=== PATIENT | female | born 1960 | race Caucasian/White ===

== ENCOUNTER 2021-06-22 12:00 | Outpatient (CLI) | payer MEDICAID ==
[2021-06-15 12:07] LABS: BASOPHILS # (AUTO) 0.1 X10'3 (0-0.2); BASOPHILS % (AUTO) 0.6 % (0-1); EOSINOPHILS # (AUTO) 0.1 X10'3 (0-0.9); EOSINOPHILS % (AUTO) 1.3 % (0-6); LYMPHOCYTES # (AUTO) 1.6 X10'3 (1.1-4.8); LYMPHOCYTES % (AUTO) 18.5 % (21-51); MEAN CORPUSCULAR HEMOGLOBIN 25.1 PG (27.0-31.0); MEAN CORPUSCULAR HGB CONC 31.1 g/dL (33.0-36.5); MEAN CORPUSCULAR VOLUME 80.8 FL (78-98); MEAN PLATELET VOLUME 8.1 FL (7.4-10.4); MONOCYTES # (AUTO) 0.5 X10'3 (0-0.9); MONOCYTES % (AUTO) 6.4 % (2-12); NEUTROPHILS # (AUTO) 6.2 X10'3 (1.8-7.7); NEUTROPHILS % (AUTO) 73.2 % (42-75); PRE OP HEMOGLOBIN 11.2 g/dL (12.0-16.0); PRE OP PLATELET COUNT 254 X10'3 (140-440); RED BLOOD COUNT 4.46 X10'6 (4.20-5.60); RED CELL DISTRIBUTION WIDTH 16.2 % (11.5-14.5)
[2021-06-15 12:25] LABS: ALBUMIN 3.2 G/DL (3.4-5.0); ALBUMIN/GLOBULIN RATIO 0.8 (1.1-1.5); ALKALINE PHOSPHATASE 76 IU/L (46-116); BLOOD UREA NITROGEN 18 MG/DL (7-18); BUN/CREATININE RATIO 22.8 (6.6-38.0); CALCIUM 8.8 MG/DL (8.5-10.1); CHLORIDE 106 MMOL/L (99-107); CREATININE 0.79 MG/DL (0.40-0.90); PRE OP ALT 18 U/L (30-65); PRE OP ANION GAP 4 (8-16); PRE OP AST 13 U/L (10-37); PRE OP BILIRUB, TOTAL 0.3 MG/DL (0.0-1.0); PRE OP GLUCOSE 135 MG/DL (70-104); PRE OP POTASSIUM 4.5 MMOL/L (3.4-5.1); PRE OP SODIUM 143 MMOL/L (135-145); TOTAL CARBON DIOXIDE 32.8 MMOL/L (24-32); eGFR 74 ML/MIN
[~2021-06-22 12:00] MED LIST: ALB0.5UD IH; ALLO100T PO; ATOR40TA PO; CETI10CA19 PO; FURO40TA4 PO; HYDR-4353 PO; LANTUS SQ; LISI-642 PO; MAGN400T50 PO; METF-1203 PO; METO50TA16 PO; MORP30CA17 PO; OMEP40CA21 PO; POTA-192 PO; PREG50CA64 PO; ROPI3TAB4 PO; SERT-434 PO
== END 2021-06-22 23:59 | disposition home or self-care (01) ==
LOC: LAB 12:00
PROVIDERS: ATTEND Orthopaedic Surgery Hand Surgery
DX: Z01.812 Encounter for preprocedural laboratory examination (principal); I51.7 Cardiomegaly; M25.78 Osteophyte, vertebrae; G56.02 Carpal tunnel syndrome, left upper limb; M65.322 Trigger finger, left index finger; M65.332 Trigger finger, left middle finger; M65.312 Trigger thumb, left thumb; M65.342 Trigger finger, left ring finger; M65.4 Radial styloid tenosynovitis [de Quervain]; M65.9 Synovitis and tenosynovitis, unspecified; Z72.0 Tobacco use; Z20.822 Contact with and (suspected) exposure to COVID-19
CPT/HCPCS: 36415; 71046; 80053; 85025; U0003; U0005

== ENCOUNTER 2021-07-27 12:00 | Outpatient (CLI) | payer MEDICAID ==
[~2021-07-27] VITALS: Ht 165.1 cm; Wt 132.4 kg
[2021-07-27 16:12] LABS: ALBUMIN 3.1 G/DL (3.4-5.0); ALKALINE PHOSPHATASE 71 IU/L (46-116); BLOOD UREA NITROGEN 13 MG/DL (7-18); BUN/CREATININE RATIO 18.3 (6.6-38.0); CALCIUM 8.4 MG/DL (8.5-10.1); CHLORIDE 103 MMOL/L (99-107); CREATININE 0.71 MG/DL (0.40-0.90); PRE OP ALT 19 U/L (30-65); PRE OP ANION GAP 11 (8-16); PRE OP AST 11 U/L (10-37); PRE OP BILIRUB, TOTAL 0.2 MG/DL (0.0-1.0); PRE OP GLUCOSE 191 MG/DL (70-104); PRE OP POTASSIUM 4.1 MMOL/L (3.4-5.1); PRE OP SODIUM 142 MMOL/L (135-145); TOTAL CARBON DIOXIDE 27.7 MMOL/L (24-32); TOTAL PROTEIN 6.3 G/DL (6.4-8.2); eGFR 84 ML/MIN
[2021-08-03] MEDS ORDERED: ringers solution, lacted 1,000 ML IV SCH (05:00)
[2021-08-03] MEDS ORDERED: famotidine 20mg tablet PO ONE (05:30)
[2021-08-03] MEDS ORDERED: DOCUMENT DATE & TIME OF BETA-BLOCKER PO ONE (05:30)
[2021-08-03] MEDS ORDERED: clindamycin-Cleocin 900mg/D5W 50 ML IV ONE (05:30)
[2021-08-03] MEDS ORDERED: albuterol 2.5 MG/3 ML nebule NEB ONE (05:30)
[2021-08-03] MEDS ORDERED: BUPIVAcaine 0.5% inj/PF 30 ML ONE (06:56)
[2021-08-03] MEDS ORDERED: BUPIVAcaine 0.5% inj/PF 30 ml vial IJ ONE (07:11)
== END 2021-07-27 23:59 | disposition home or self-care (01) ==
LOC: PRE-OP 12:00 → EDSTATUS 08-03 08:45
PROVIDERS: ATTEND Orthopaedic Surgery Hand Surgery
DX: Z01.818 Encounter for other preprocedural examination (principal); G56.02 Carpal tunnel syndrome, left upper limb; M65.322 Trigger finger, left index finger; M65.332 Trigger finger, left middle finger; M65.312 Trigger thumb, left thumb; M65.342 Trigger finger, left ring finger; Z20.822 Contact with and (suspected) exposure to COVID-19; Z88.5 Allergy status to narcotic agent; Z88.2 Allergy status to sulfonamides
CPT/HCPCS: 36415; 80053; U0003; U0005; J7120; S0020

== ENCOUNTER 2021-08-12 18:18 | Inpatient (IN) | payer MEDICAID ==
[~2021-08-12] VITALS: Ht 165.1 cm; Wt 136.1 kg
[2021-08-12 18:57] LABS: BASOPHILS % (AUTO) 0.5 % (0-1); EOSINOPHILS # (AUTO) 0.3 X10'3 (0-0.9); EOSINOPHILS % (AUTO) 3.8 % (0-6); LYMPHOCYTES # (AUTO) 1.4 X10'3 (1.1-4.8); LYMPHOCYTES % (AUTO) 16.3 % (21-51); MONOCYTES # (AUTO) 0.5 X10'3 (0-0.9); MONOCYTES % (AUTO) 6.3 % (2-12); NEUTROPHILS # (AUTO) 6.1 X10'3 (1.8-7.7); NEUTROPHILS % (AUTO) 73.1 % (42-75); PLATELET COUNT 229 X10'3 (140-440); RED BLOOD COUNT 4.32 X10'6 (4.20-5.60); RED CELL DISTRIBUTION WIDTH 15.6 % (11.5-14.5); WHITE BLOOD COUNT 8.4 X10'3 (4.5-11.0)
[2021-08-12 19:16] LABS: ALANINE AMINOTRANSFERASE 19 U/L (12-78); ALBUMIN 2.8 G/DL (3.4-5.0); ALBUMIN/GLOBULIN RATIO 0.8 (1.1-1.5); ALKALINE PHOSPHATASE 68 IU/L (46-116); ANION GAP -2 (8-16); ASPARTATE AMINO TRANSFERASE 14 U/L (10-37); BILIRUBIN,TOTAL 0.2 MG/DL (0.1-1.0); BLOOD UREA NITROGEN 15 MG/DL (7-18); BUN/CREATININE RATIO 23.4 (6.6-38.0); CALCIUM 8.4 MG/DL (8.5-10.1); CHLORIDE 107 MMOL/L (99-107); CREATININE 0.64 MG/DL (0.40-0.90); GLUCOSE 122 MG/DL (70-104); POTASSIUM 4.7 MMOL/L (3.5-5.1); SODIUM 140 MMOL/L (135-145); TOTAL CARBON DIOXIDE 34.8 MMOL/L (24-32); TOTAL PROTEIN 6.5 G/DL (6.4-8.2); eGFR > 90 ML/MIN
[2021-08-12 19:25] LABS: HEMATOCRIT 33.4 % (35.0-45.0); HEMOGLOBIN 10.6 g/dl (12.0-16.0); MEAN CORPUSCULAR HEMOGLOBIN 24.4 PG (27.0-31.0); MEAN CORPUSCULAR HGB CONC 31.8 g/dL (33.0-36.5); MEAN CORPUSCULAR VOLUME 76.9 FL (78-98)
[2021-08-12 19:30] LABS: PLATELET ESTIMATE NORMAL
[2021-08-12 19:31] LABS: ELLIPTOCYTES 1+; MICROCYTOSIS 1+
[2021-08-12 19:32] LABS: HYPOCHROMASIA 1+
[2021-08-12] MEDS ORDERED: aspirin 325mg tablet PO ONE (20:10)
[2021-08-12] MEDS ORDERED: ondansetron/PF 4mg/2ml inj IV PRN (20:30)
[2021-08-12] MEDS ORDERED: magnesium 2GM in 50ml NS 50 ML IV PRN (20:30)
[2021-08-12] MEDS ORDERED: potassium Cl 20 mEq SR tablet PO PRN ×2 (20:30)
[2021-08-12] MEDS ORDERED: acetaminophen 325mg tablet PO PRN (20:30)
[2021-08-12] MEDS ORDERED: magnesium hydroxide 30ml (MOM) UD suspension PO PRN (20:30)
[2021-08-12] MEDS ORDERED: magnesium 4gm in 100ml NS 100 ML IV PRN (20:30)
[2021-08-12] MEDS ORDERED: potassium CL 10mEq/100ml bag 100 ML IV PRN (20:30)
[2021-08-12] MEDS ORDERED: mag hydrox/Alum hydrox/simeth 30ml oral suspension PO PRN (20:30)
[2021-08-12] MEDS ORDERED: magnesium Cl slow-release 64mg tablet PO PRN (20:30)
--- NOTE | 2021-08-12 20:33 | NUR ---
Patient stated that she takes Xarelto 20mg once at night. Consulted with Fredis DAVIS and he gave verbal orders to order the Xarelto and give food with dose.
[2021-08-12] MEDS ORDERED: rivaroxaban 20mg tablet PO SCH (20:35)
[2021-08-12] MEDS ORDERED: rivaroxaban 20mg tablet PO ONE (20:35)
[2021-08-12] MEDS ORDERED: dextrose 50%-water 50ml dispensing syringe IV PRN ×2 (20:45)
[2021-08-12] MEDS ORDERED: glucagon, human recombinant 1mg kit SUBCUT PRN (20:45)
[2021-08-12] MEDS ORDERED: DEXTROSE 15 GM of carb/4 tabs (each vial/BOTTLE has 4 tablets) PO PRN ×2 (20:45)
[2021-08-12] MEDS ORDERED: MESSAGE TO PHARMACY PO ONE (20:45)
[2021-08-12] MEDS: insulin glargine (Lantus) pen - multi-dose SQ SCH (21:00)
[2021-08-12] MEDS ORDERED: SOTA80TA46 PO (21:13)
[2021-08-12] MEDS ORDERED: RIVA20TA PO (21:13)
[2021-08-12 22:19] LABS: HEMOGLOBIN A1C 6.9 % (4.5-6.2)
[2021-08-12 22:21] LABS: CLARITY,URINE CLEAR (Clear); COLOR,URINE YELLOW (Yellow); GLUCOSE, URINE NEGATIVE (Neg); KETONES,URINE NEGATIVE (Neg); LEUKOCYTE ESTERASE ,URINE NEGATIVE (Neg); NITRITES, URINE NEGATIVE (Neg); OCCULT BLOOD,URINE NEGATIVE (Neg); PROTEIN,URINE NEGATIVE (Neg); UROBILINOGEN,URINE 0.2 E.U/dL (0.2-1.0)
[2021-08-12 22:23] LABS: MAGNESIUM 2.1 MG/DL (1.5-2.4); POTASSIUM 4.8 MMOL/L (3.5-5.1)
[2021-08-12] MEDS ORDERED: albuterol 2.5 MG/3 ML nebule NEB PRN (22:35)
[2021-08-12] MEDS: morphine 2 MG/ML inj. syringe IV PRN (22:36)
[2021-08-12] MEDS: levoFLOXACIN-Levaquin 500mg/D5 100 ML IV SCH (22:39)
[2021-08-12] MEDS ORDERED: METO-395 PO (22:40)
[2021-08-12 22:41] LABS: UA COLLECTION TYPE CLN CATCH MIDSTREAM
[2021-08-12] MEDS ORDERED: FEXO-270 PO (22:41)
[2021-08-12 23:00] VITALS: BP 104/36
[2021-08-12 23:57] VITALS: BP 130/41
--- NOTE | 2021-08-13 00:07 | NUR ---
Pt King Cassidy simeon admit on PCU bed 3013 B, troponin level is 513 . Previous was 504. Md notified of level. Md will consult cardiology for AM cardiac cath.
[2021-08-13 02:00] VITALS: BP 102/43
[2021-08-13] MEDS: HYDROcodone/acetaminophen 10/325mg tab PO PRN ×3 (02:08→16:08)
[2021-08-13] MEDS ORDERED: ROPINIRole 1mg tablet PO ONE (02:30)
[2021-08-13 06:00] VITALS: BP 106/47
[2021-08-13 07:44] LABS: ALANINE AMINOTRANSFERASE 18 U/L (12-78); ALBUMIN 2.8 G/DL (3.4-5.0); ALBUMIN/GLOBULIN RATIO 0.7 (1.1-1.5); ALKALINE PHOSPHATASE 67 IU/L (46-116); ANION GAP 2 (8-16); ASPARTATE AMINO TRANSFERASE 15 U/L (10-37); BILIRUBIN,TOTAL 0.3 MG/DL (0.1-1.0); BLOOD UREA NITROGEN 16 MG/DL (7-18); BUN/CREATININE RATIO 25.4 (6.6-38.0); CALCIUM 8.4 MG/DL (8.5-10.1); CHLORIDE 106 MMOL/L (99-107); CREATININE 0.63 MG/DL (0.40-0.90); GLUCOSE 98 MG/DL (70-104); POTASSIUM 4.9 MMOL/L (3.5-5.1); SODIUM 140 MMOL/L (135-145); TOTAL CARBON DIOXIDE 31.7 MMOL/L (24-32); TOTAL PROTEIN 6.9 G/DL (6.4-8.2); eGFR > 90 ML/MIN
[2021-08-13] MEDS: pantoprazole 40mg Tablet.DR PO SCH (07:46)
[2021-08-13 07:48] LABS: CHOL/HDL RATIO 2.6 (0.00-4.99); CHOLESTEROL 110 MG/DL (0-200); HDL CHOLESTEROL 43 MG/DL (35-60); LDL CHOLESTEROL 55 MG/DL (50-100); TRIGLYCERIDES 78 MG/DL (20-135)
[2021-08-13 07:49] LABS: BASOPHILS % (AUTO) 0.5 % (0-1); EOSINOPHILS # (AUTO) 0.4 X10'3 (0-0.9); EOSINOPHILS % (AUTO) 5.5 % (0-6); HEMATOCRIT 31.2 % (35.0-45.0); HEMOGLOBIN 9.7 g/dl (12.0-16.0); LYMPHOCYTES # (AUTO) 1.8 X10'3 (1.1-4.8); LYMPHOCYTES % (AUTO) 21.5 % (21-51); MEAN CORPUSCULAR HEMOGLOBIN 24.3 PG (27.0-31.0); MEAN CORPUSCULAR HGB CONC 30.9 g/dL (33.0-36.5); MEAN CORPUSCULAR VOLUME 78.6 FL (78-98); MEAN PLATELET VOLUME 8.4 FL (7.4-10.4); MONOCYTES # (AUTO) 0.5 X10'3 (0-0.9); MONOCYTES % (AUTO) 6.7 % (2-12); NEUTROPHILS # (AUTO) 5.4 X10'3 (1.8-7.7); NEUTROPHILS % (AUTO) 65.8 % (42-75); PLATELET COUNT 201 X10'3 (140-440); RED BLOOD COUNT 3.97 X10'6 (4.20-5.60); RED CELL DISTRIBUTION WIDTH 15.9 % (11.5-14.5); WHITE BLOOD COUNT 8.1 X10'3 (4.5-11.0)
--- NOTE | 2021-08-13 07:57 | NUR ---
CRITICAL LAB VALUE TAKEN FROM LAB, REPORTED TO PRIMARY RN.
[2021-08-13] MEDS: K and/or MAG REPLACEMENT MC SCH ×2 (08:00→20:00)
[2021-08-13] MEDS ORDERED: metFORMIN 500mg tablet PO SCH (08:00)
[2021-08-13] MEDS ORDERED: methylPREDNISolone sod succ 125mg/2ml vial IV SCH (08:00)
[2021-08-13] MEDS ORDERED: insulin glargine (Lantus) pen - multi-dose SQ SCH ×2 (08:00)
--- NOTE | 2021-08-13 08:00 | NUR ---
solomon James has been assessed as indicated. She has been noted to be both pleasant and cooperative. Denies pain and is ambulating without assistance. access to Right wrist for cardiac cath has no hematoma. She presently has no s/s of distress or discomfort Addendum: 08/13/21 at 1211 by Mare Hernandez RN ABOVE NOTE INCORRECT PATIENT
[2021-08-13] MEDS ORDERED: PERFLUTREN PROTEIN-A MICROSPHR (Optison) 0.22 MG/ML 3ML VIAL IV ONE (08:15)
[2021-08-13] MEDS ORDERED: regadenoson 0.4mg/5ml syringe IV PRN (08:20)
[2021-08-13] MEDS ORDERED: metoprolol tartrate 1mg/ml inj IV PRN (08:20)
[2021-08-13] MEDS ORDERED: nitroGLYCERIN 0.4mg SUBLingual tab SL PRN (08:20)
[2021-08-13] MEDS ORDERED: aminophylline 500mg/20ml vial IV PRN (08:20)
[2021-08-13] MEDS: furosemide 40mg/4ml inj IV SCH (09:03)
[2021-08-13] MEDS: magnesium oxide 400mg tablet PO SCH (09:04)
[2021-08-13] MEDS: levoFLOXACIN-Levaquin 500mg/D5 100 ML IV SCH (09:04)
[2021-08-13] MEDS: atorvastatin 20mg tablet PO SCH (09:04)
[2021-08-13] MEDS: lisinopril 5mg tablet PO SCH (09:05)
[2021-08-13] MEDS: allopurinol 100mg tablet PO SCH (09:05)
[2021-08-13] MEDS: sotalol 80mg tablet PO SCH ×2 (09:05→20:07)
[2021-08-13] MEDS: loratadine 10mg tablet PO SCH (09:05)
[2021-08-13] MEDS: potassium chloride 8mEq ER tablet PO SCH ×2 (09:06→20:08)
[2021-08-13] MEDS: docusate sod 100mg capsule PO SCH ×2 (09:07→20:07)
[2021-08-13] MEDS: pregabalin 25mg capsule PO SCH ×3 (09:07→20:15)
[2021-08-13] MEDS: metoprolol succinate 25mg (24-HOUR) SR. Tablet PO SCH (09:07)
[2021-08-13] MEDS: sertraline 50mg tablet PO SCH (09:07)
[2021-08-13] MEDS: morphine ER 15mg tablet PO SCH ×3 (09:08→20:14)
[2021-08-13 11:00] VITALS: BP 119/58
[2021-08-13] MEDS: morphine 2 MG/ML inj. syringe IV PRN ×2 (11:41→20:23)
[2021-08-13] MEDS ORDERED: ondansetron 4mg rapidly disintigrating tab PO PRN (14:10)
[2021-08-13 15:00] VITALS: BP 94/42
--- NOTE | 2021-08-13 17:45 | NUR ---
Miss james has been assessed as indicated. She has been noted to be both pleasant and cooperative. she has been successfully treated for pain 3x this shift. She was scheduled to have a Stress test today. However, she states that she had a stress test recently at [facility]. [facility] was contacted. medical records analyst states that she had a stress test in Jun 2021November of 2020 and Jun. he request was not successfully faxed initially. With great effort the faxed request has been successful. Miss James is presently resting quietly
[2021-08-13 18:00] VITALS: BP 93/41
--- NOTE | 2021-08-13 18:25 | NUR ---
Problems reprioritized. Patient report given, questions answered & plan of care reviewed with DONNELL Evans
[2021-08-13] MEDS: methylPREDNISolone sod succ 125mg/2ml vial IV SCH (20:07)
[2021-08-13] MEDS: rivaroxaban 20mg tablet PO SCH (20:14)
[2021-08-13] MEDS: ROPINIRole 1mg tablet PO SCH (20:14)
[2021-08-13] MEDS: insulin glargine (Lantus) pen - multi-dose SQ SCH (20:24)
[2021-08-14] VITALS (7 sets, daily range): BP systolic 96–123; BP diastolic 40–57
[2021-08-14] MEDS: HYDROcodone/acetaminophen 10/325mg tab PO PRN ×3 (05:36→19:41)
[2021-08-14 06:44] LABS: BASOPHILS % (AUTO) 0.1 % (0-1); EOSINOPHILS % (AUTO) 0.2 % (0-6); HEMATOCRIT 31.9 % (35.0-45.0); HEMOGLOBIN 9.7 g/dl (12.0-16.0); LYMPHOCYTES # (AUTO) 1.1 X10'3 (1.1-4.8); LYMPHOCYTES % (AUTO) 13.3 % (21-51); MEAN CORPUSCULAR HEMOGLOBIN 23.9 PG (27.0-31.0); MEAN CORPUSCULAR HGB CONC 30.5 g/dL (33.0-36.5); MEAN CORPUSCULAR VOLUME 78.3 FL (78-98); MEAN PLATELET VOLUME 8.4 FL (7.4-10.4); MONOCYTES # (AUTO) 0.1 X10'3 (0-0.9); MONOCYTES % (AUTO) 1.2 % (2-12); NEUTROPHILS # (AUTO) 6.7 X10'3 (1.8-7.7); NEUTROPHILS % (AUTO) 85.2 % (42-75); PLATELET COUNT 211 X10'3 (140-440); RED BLOOD COUNT 4.07 X10'6 (4.20-5.60); RED CELL DISTRIBUTION WIDTH 15.4 % (11.5-14.5); WHITE BLOOD COUNT 7.9 X10'3 (4.5-11.0)
[2021-08-14 07:10] LABS: ALANINE AMINOTRANSFERASE 17 U/L (12-78); ALBUMIN 2.7 G/DL (3.4-5.0); ALBUMIN/GLOBULIN RATIO 0.7 (1.1-1.5); ALKALINE PHOSPHATASE 67 IU/L (46-116); ANION GAP 6 (8-16); ASPARTATE AMINO TRANSFERASE 14 U/L (10-37); BILIRUBIN,TOTAL 0.3 MG/DL (0.1-1.0); BLOOD UREA NITROGEN 16 MG/DL (7-18); BUN/CREATININE RATIO 24.2 (6.6-38.0); CALCIUM 8.6 MG/DL (8.5-10.1); CHLORIDE 103 MMOL/L (99-107); CREATININE 0.66 MG/DL (0.40-0.90); GLUCOSE 192 MG/DL (70-104); MAGNESIUM 1.8 MG/DL (1.5-2.4); POTASSIUM 4.6 MMOL/L (3.5-5.1); SODIUM 141 MMOL/L (135-145); TOTAL CARBON DIOXIDE 32.1 MMOL/L (24-32); TOTAL PROTEIN 6.8 G/DL (6.4-8.2); eGFR > 90 ML/MIN
[2021-08-14] MEDS: ipratropium/albuterol 3ml nebule NEB PRN (07:54)
[2021-08-14] MEDS: metoprolol succinate 25mg (24-HOUR) SR. Tablet PO SCH ×2 (08:00→08:23)
[2021-08-14] MEDS: lisinopril 5mg tablet PO SCH ×2 (08:00→08:23)
[2021-08-14] MEDS: K and/or MAG REPLACEMENT MC SCH ×2 (08:00→20:00)
[2021-08-14] MEDS: nicotine 21mg patch - 24 hr TD SCH (08:00)
[2021-08-14] MEDS: sotalol 80mg tablet PO SCH ×3 (08:00→20:11)
[2021-08-14] MEDS: furosemide 40mg/4ml inj IV SCH ×2 (08:22→20:09)
[2021-08-14] MEDS: methylPREDNISolone sod succ 125mg/2ml vial IV SCH ×2 (08:22→20:10)
[2021-08-14] MEDS: pregabalin 25mg capsule PO SCH ×3 (08:23→20:12)
[2021-08-14] MEDS: sertraline 50mg tablet PO SCH (08:23)
[2021-08-14] MEDS: atorvastatin 20mg tablet PO SCH (08:23)
[2021-08-14] MEDS: potassium chloride 8mEq ER tablet PO SCH ×2 (08:23→20:10)
[2021-08-14] MEDS: morphine ER 15mg tablet PO SCH ×3 (08:25→20:11)
[2021-08-14] MEDS: docusate sod 100mg capsule PO SCH ×2 (08:25→20:10)
[2021-08-14] MEDS: allopurinol 100mg tablet PO SCH (08:25)
[2021-08-14] MEDS: levoFLOXACIN-Levaquin 500mg/D5 100 ML IV SCH (08:25)
[2021-08-14] MEDS: loratadine 10mg tablet PO SCH (08:25)
[2021-08-14] MEDS: magnesium oxide 400mg tablet PO SCH (08:25)
[2021-08-14] MEDS: pantoprazole 40mg Tablet.DR PO SCH (08:25)
[2021-08-14] MEDS ORDERED: tizanidine 4mg tablet PO ONE (11:15)
[2021-08-14] MEDS: insulin Lispro (HumaLOG) vial - multi-dose SQ SCH ×2 (13:40→19:55)
[2021-08-14] MEDS: morphine 2 MG/ML inj. syringe IV PRN (16:35)
[2021-08-14] MEDS: LIDOcaine 5% patch TP SCH (17:21)
--- NOTE | 2021-08-14 17:45 | NUR ---
Miss James has been assessed as indicated. She states that she has not had a BM today. She did have a BM yesterday. She states that the newly ordered muscle relaxer has eased the pain in her shoulders a great deal. She has requested and received bilat thigh lidocaine patches. she has received IV Morphine x1 today and PO [place] x2 today. She ambulates to the restroom with no assistance and is presently resting quietly
--- NOTE | 2021-08-14 18:24 | NUR ---
Patient in room PCU 3013. I have received report from ROXANNE Tobar and had the opportunity to ask questions and assume patient care.
--- NOTE | 2021-08-14 18:33 | NUR ---
Problems reprioritized. Patient report given, questions answered & plan of care reviewed with ELOINA Perry
[2021-08-14] MEDS: tizanidine 4mg tablet PO PRN (19:42)
[2021-08-14] MEDS: ROPINIRole 1mg tablet PO SCH (20:10)
[2021-08-14] MEDS: rivaroxaban 20mg tablet PO SCH (20:12)
[2021-08-14] MEDS: insulin glargine (Lantus) pen - multi-dose SQ SCH (22:02)
[2021-08-15] VITALS (7 sets, daily range): BP systolic 106–140; BP diastolic 39–75
[2021-08-15] MEDS: HYDROcodone/acetaminophen 10/325mg tab PO PRN ×2 (02:00→16:42)
--- NOTE | 2021-08-15 06:24 | NUR ---
Problems reprioritized. Patient report given, questions answered & plan of care reviewed with ROXANNE Tobar.
[2021-08-15 06:46] LABS: BASOPHILS % (AUTO) 0.1 % (0-1); EOSINOPHILS % (AUTO) 0 % (0-6); HEMATOCRIT 33.3 % (35.0-45.0); HEMOGLOBIN 10.2 g/dl (12.0-16.0); LYMPHOCYTES % (AUTO) 10.5 % (21-51); MEAN CORPUSCULAR HEMOGLOBIN 23.8 PG (27.0-31.0); MEAN CORPUSCULAR HGB CONC 30.6 g/dL (33.0-36.5); MEAN CORPUSCULAR VOLUME 77.9 FL (78-98); MEAN PLATELET VOLUME 8.1 FL (7.4-10.4); MONOCYTES # (AUTO) 0.2 X10'3 (0-0.9); MONOCYTES % (AUTO) 2.1 % (2-12); NEUTROPHILS # (AUTO) 8.4 X10'3 (1.8-7.7); NEUTROPHILS % (AUTO) 87.3 % (42-75); PLATELET COUNT 246 X10'3 (140-440); RED BLOOD COUNT 4.27 X10'6 (4.20-5.60); RED CELL DISTRIBUTION WIDTH 15.4 % (11.5-14.5); WHITE BLOOD COUNT 9.6 X10'3 (4.5-11.0)
[2021-08-15 07:09] LABS: ALANINE AMINOTRANSFERASE 15 U/L (12-78); ALBUMIN/GLOBULIN RATIO 0.8 (1.1-1.5); ALKALINE PHOSPHATASE 68 IU/L (46-116); ANION GAP 4 (8-16); ASPARTATE AMINO TRANSFERASE 9 U/L (10-37); BILIRUBIN,TOTAL 0.3 MG/DL (0.1-1.0); BLOOD UREA NITROGEN 22 MG/DL (7-18); BUN/CREATININE RATIO 27.8 (6.6-38.0); CALCIUM 8.6 MG/DL (8.5-10.1); CHLORIDE 100 MMOL/L (99-107); CREATININE 0.79 MG/DL (0.40-0.90); GLUCOSE 255 MG/DL (70-104); MAGNESIUM 2.1 MG/DL (1.5-2.4); POTASSIUM 4.7 MMOL/L (3.5-5.1); SODIUM 140 MMOL/L (135-145); TOTAL CARBON DIOXIDE 35.7 MMOL/L (24-32); TOTAL PROTEIN 6.8 G/DL (6.4-8.2); eGFR 74 ML/MIN
[2021-08-15] MEDS: ipratropium/albuterol 3ml nebule NEB PRN (07:10)
[2021-08-15] MEDS: K and/or MAG REPLACEMENT MC SCH ×2 (07:39→20:00)
[2021-08-15] MEDS: atorvastatin 20mg tablet PO SCH (08:00)
[2021-08-15] MEDS: metoprolol succinate 25mg (24-HOUR) SR. Tablet PO SCH (08:00)
[2021-08-15] MEDS: sotalol 80mg tablet PO SCH ×2 (08:00→20:08)
[2021-08-15] MEDS: LIDOcaine 5% patch TP SCH (08:00)
[2021-08-15] MEDS: lisinopril 5mg tablet PO SCH (08:00)
[2021-08-15] MEDS: nicotine 21mg patch - 24 hr TD SCH (08:00)
[2021-08-15] MEDS: loratadine 10mg tablet PO SCH (08:01)
[2021-08-15] MEDS: pregabalin 25mg capsule PO SCH ×3 (08:01→20:10)
[2021-08-15] MEDS: allopurinol 100mg tablet PO SCH (08:01)
[2021-08-15] MEDS: pantoprazole 40mg Tablet.DR PO SCH (08:01)
[2021-08-15] MEDS: potassium chloride 8mEq ER tablet PO SCH ×2 (08:02→20:12)
[2021-08-15] MEDS: magnesium oxide 400mg tablet PO SCH (08:02)
[2021-08-15] MEDS: docusate sod 100mg capsule PO SCH ×2 (08:02→20:12)
[2021-08-15] MEDS: sertraline 50mg tablet PO SCH (08:02)
[2021-08-15] MEDS: morphine ER 15mg tablet PO SCH ×3 (08:02→20:11)
[2021-08-15] MEDS: furosemide 40mg/4ml inj IV SCH ×2 (08:06→20:08)
[2021-08-15] MEDS: methylPREDNISolone sod succ 125mg/2ml vial IV SCH ×2 (08:07→20:11)
[2021-08-15] MEDS: levoFLOXACIN 500mg tablet PO SCH (12:05)
--- NOTE | 2021-08-15 12:06 | NUR ---
Resource Nurse Medications given for primary RN Ekaterina while on lunch break; Per RN okay to give all medications that were given; Veena Kyleigh
[2021-08-15] MEDS: insulin Lispro (HumaLOG) vial - multi-dose SQ SCH ×2 (14:42→18:58)
[2021-08-15] MEDS: tizanidine 4mg tablet PO PRN ×2 (14:53→20:11)
--- NOTE | 2021-08-15 17:46 | NUR ---
Miss mcfarlane has been assessed as indicated. She has been noted to be bothh pleasant and cooperative. She had a c/o a "knot" to her lower left extremity. This was palpated by this literary writer. Later when MD was examining the area, the raised section was no longer palpable. She states that the area is still sore. No further interventions at this time. She has been successfully treated for pain several times and taken a muscle relaxer 1x this shift. She is presently resting quietly with no s/s of distress or discomfort
--- NOTE | 2021-08-15 18:14 | NUR ---
Problems reprioritized. Patient report given, questions answered & plan of care reviewed with ELOINA.
--- NOTE | 2021-08-15 18:31 | NUR ---
Patient in room PCU 3013. I have received report from ROXANNE Tobar and had the opportunity to ask questions and assume patient care.
[2021-08-15] MEDS: ROPINIRole 1mg tablet PO SCH (20:08)
[2021-08-15] MEDS: rivaroxaban 20mg tablet PO SCH (20:12)
[2021-08-15] MEDS: insulin glargine (Lantus) pen - multi-dose SQ SCH (21:56)
[2021-08-16 02:00] VITALS: BP 106/40
[2021-08-16 06:00] VITALS: BP 128/74
[2021-08-16 06:35] LABS: BASOPHILS % (AUTO) 0 % (0-1); EOSINOPHILS % (AUTO) 0 % (0-6); HEMATOCRIT 32.7 % (35.0-45.0); HEMOGLOBIN 10.1 g/dl (12.0-16.0); LYMPHOCYTES # (AUTO) 1.1 X10'3 (1.1-4.8); LYMPHOCYTES % (AUTO) 11.8 % (21-51); MEAN CORPUSCULAR HGB CONC 30.9 g/dL (33.0-36.5); MEAN CORPUSCULAR VOLUME 77.7 FL (78-98); MEAN PLATELET VOLUME 8.2 FL (7.4-10.4); MONOCYTES # (AUTO) 0.2 X10'3 (0-0.9); NEUTROPHILS # (AUTO) 8.2 X10'3 (1.8-7.7); NEUTROPHILS % (AUTO) 86.2 % (42-75); PLATELET COUNT 239 X10'3 (140-440); RED BLOOD COUNT 4.21 X10'6 (4.20-5.60); RED CELL DISTRIBUTION WIDTH 15.5 % (11.5-14.5); WHITE BLOOD COUNT 9.5 X10'3 (4.5-11.0)
--- NOTE | 2021-08-16 06:42 | NUR ---
Problems reprioritized. Patient report given, questions answered & plan of care reviewed with ROXANNE Tobar.
[2021-08-16 07:12] LABS: ALANINE AMINOTRANSFERASE 17 U/L (12-78); ALBUMIN 2.8 G/DL (3.4-5.0); ALBUMIN/GLOBULIN RATIO 0.8 (1.1-1.5); ALKALINE PHOSPHATASE 61 IU/L (46-116); ANION GAP 4 (8-16); ASPARTATE AMINO TRANSFERASE 11 U/L (10-37); BILIRUBIN,TOTAL 0.3 MG/DL (0.1-1.0); BLOOD UREA NITROGEN 28 MG/DL (7-18); BUN/CREATININE RATIO 31.8 (6.6-38.0); CALCIUM 8.6 MG/DL (8.5-10.1); CHLORIDE 101 MMOL/L (99-107); CREATININE 0.88 MG/DL (0.40-0.90); GLUCOSE 221 MG/DL (70-104); MAGNESIUM 2.1 MG/DL (1.5-2.4); POTASSIUM 4.6 MMOL/L (3.5-5.1); SODIUM 143 MMOL/L (135-145); TOTAL CARBON DIOXIDE 38.3 MMOL/L (24-32); TOTAL PROTEIN 6.3 G/DL (6.4-8.2); eGFR 66 ML/MIN
[2021-08-16] MEDS: morphine ER 15mg tablet PO SCH ×2 (08:00→12:04)
[2021-08-16] MEDS: pregabalin 25mg capsule PO SCH ×2 (08:00→12:04)
[2021-08-16] MEDS: K and/or MAG REPLACEMENT MC SCH (08:00)
[2021-08-16] MEDS ORDERED: lisinopril 2.5mg tablet PO SCH (08:00)
--- NOTE | 2021-08-16 08:00 | NUR ---
Resource RN Meds given for primary RN Ekaterina while on breakfast break. [facility]
[2021-08-16] MEDS: nicotine 21mg patch - 24 hr TD SCH (08:02)
[2021-08-16] MEDS: atorvastatin 20mg tablet PO SCH (08:02)
[2021-08-16] MEDS: loratadine 10mg tablet PO SCH (08:02)
[2021-08-16] MEDS: pantoprazole 40mg Tablet.DR PO SCH (08:02)
[2021-08-16] MEDS: furosemide 40mg/4ml inj IV SCH (08:03)
[2021-08-16] MEDS: magnesium oxide 400mg tablet PO SCH (08:03)
[2021-08-16] MEDS: allopurinol 100mg tablet PO SCH (08:03)
[2021-08-16] MEDS: potassium chloride 8mEq ER tablet PO SCH (08:03)
[2021-08-16] MEDS: sertraline 50mg tablet PO SCH (08:03)
[2021-08-16] MEDS: methylPREDNISolone sod succ 125mg/2ml vial IV SCH (08:04)
[2021-08-16] MEDS: LIDOcaine 5% patch TP SCH (08:04)
[2021-08-16] MEDS: sotalol 80mg tablet PO SCH (08:05)
[2021-08-16] MEDS: docusate sod 100mg capsule PO SCH (08:15)
[2021-08-16] MEDS ORDERED: LISI2.5T14 PO (10:15)
[2021-08-16] MEDS ORDERED: NICO-687 TD (10:15)
[2021-08-16] MEDS ORDERED: FURO40TA4 PO (10:15)
[2021-08-16] MEDS ORDERED: PRED20TA PO (10:15)
[2021-08-16] MEDS ORDERED: TIZA-205 PO (10:15)
--- NOTE | 2021-08-16 10:27 | NUR ---
Initial: Pt admit dx COPD exacerbation, acute respiratory failure, acute exacerbation of chronic systolic heart failure, and demand ischemia per EMR. Pt is currently on 2L HFNC per EMR. Pt is on carb control/1.5L fluid restriction diet and eating well w/ 100% avg PO intake meals meeting estimated nutrient needs. Recommend double protein with meals for satiety. LBM 08/13, receiving routine colace per EMR. No nutrition intervention implemented at this time. Will continue to follow. Recommendations: 1. Continue carb control/1.5L fluid restriction diet per MD 2. Recommend double protein TIDWM for satiety 3. Routine bowel care 4. Weekly scaled wts Addendum: 08/16/21 at 1028 by Maria A Vidal Intern RD Amended: Links added. Addendum: 08/16/21 at [address] I have reviewed assessment by technical internship
[2021-08-16 11:00] VITALS: BP 132/60
[2021-08-16] MEDS: levoFLOXACIN 500mg tablet PO SCH (12:04)
--- NOTE | 2021-08-16 13:08 | NUR ---
Miss James has been DC to home. IV access has been removed. DC instructions have been reviewed. she expressed that she understood and signed to indicate this. She was escorted to the front door in a WC escorted by staff She had in her posession a newly acquired wheeled/seated walker. At the time of DC she was compliant with the plan to DC and has no s/s of distress or discomfort. She was driven home in a private vehicle by her
== END 2021-08-16 12:46 | disposition home or self-care (01) | DRG 140 ==
LOC: ER 18:19 → ED HOLD 20:41 → PCU 3S 22:21
PROVIDERS: ADMIT Internal Medicine; ATTEND Family Medicine
DX: J44.1 Chronic obstructive pulmonary disease with (acute) exacerbation (principal); J96.20 Acute and chronic respiratory failure, unspecified whether with hypoxia or hypercapnia; I50.23 Acute on chronic systolic (congestive) heart failure; I21.A1 Myocardial infarction type 2; I11.0 Hypertensive heart disease with heart failure; I95.9 Hypotension, unspecified; E11.9 Type 2 diabetes mellitus without complications; Z79.01 Long term (current) use of anticoagulants; Z20.822 Contact with and (suspected) exposure to COVID-19; E03.9 Hypothyroidism, unspecified; E66.01 Morbid (severe) obesity due to excess calories; F32.A Depression, unspecified; G89.29 Other chronic pain; J20.9 Acute bronchitis, unspecified; J44.0 Chronic obstructive pulmonary disease with (acute) lower respiratory infection; M25.511 Pain in right shoulder; M54.2 Cervicalgia; E78.00 Pure hypercholesterolemia, unspecified; E78.5 Hyperlipidemia, unspecified; F17.210 Nicotine dependence, cigarettes, uncomplicated; I25.10 Atherosclerotic heart disease of native coronary artery without angina pectoris; I48.91 Unspecified atrial fibrillation; Z79.4 Long term (current) use of insulin; Z79.84 Long term (current) use of oral hypoglycemic drugs; Z90.710 Acquired absence of both cervix and uterus; Z68.42 Body mass index [BMI] 45.0-49.9, adult; Z88.0 Allergy status to penicillin; Z88.5 Allergy status to narcotic agent; Z88.8 Allergy status to other drugs, medicaments and biological substances; Z90.49 Acquired absence of other specified parts of digestive tract; Z79.899 Other long term (current) drug therapy; Z98.51 Tubal ligation status; Z71.6 Tobacco abuse counseling
CPT/HCPCS: 36415; 71045; 73030; 80053; 80061; 81003; 82948; 83036; 83735; 83880; 84132; 84443; 84484; 85008; 85025; 87081; 87635; 93005; 93306; 94640; 94760; 99285; G0378; J1815; J1940; J1956; J2270; J2930